=== PATIENT | male | born 2000 | race American Indian/Alaskan Native ===

== ENCOUNTER 2021-04-03 19:11 | Emergency (ER) | payer SELFPAY ==
[2021-04-03 19:24] VITALS: BP 145/86
[2021-04-03] MEDS ORDERED: LIDOCAINE-MPF (1%) 10 MG/1 ML VIAL 5 ML INFILTRATI ONE (22:03)
--- NOTE | 2021-04-03 22:06 | Emergency Department Report ---
HPI - General Chief Complaint: Urogenital-Male Time Seen by Provider: 04/03/21 22:02 - HPI HPI: 20-year-old -[place] male presents to the emergency department with complaint of a 1 to 2-day history of some mild penile discharge and some burning with urination. He says that he recently became sexually active with a new partner and does not always use protection. He denies any past medical history including any history of STDs. He has not taken anything for symptoms prior to presentation today. He denies any rash or lesions. ED Past Medical Hx - Past Medical History Previous Medical History?: No Hx Asthma: Yes - Surgical History Past Surgical History?: No - Medications Home Medications: Home Medications Medication Instructions Recorded Confirmed Last Taken Type DOXYCYCLINE Hyclate [Vibramycin] 100 mg PO Q12HR #14 capsule 04/03/21 Unknown Rx ED Review of Systems ROS: Stated complaint: DISCHARGE FROM PENIS Other details as noted in HPI Comment: All other systems reviewed and negative Constitutional: denies: chills, fever Gastrointestinal: denies: abdominal pain, vomiting Genitourinary: dysuria, discharge. denies: hematuria, testicular pain Skin: denies: rash, lesions Physical Exam - Physical Exam Vital Signs: Vital Signs 04/03/21 19:14 Temperature 98.2 F Pulse Rate 100 H Respiratory 16 Rate Blood Pressure 145/86 O2 Sat by Pulse 98 Oximetry Physical Exam: GENERAL: The patient is well-developed well-nourished. HENT: Normocephalic. Atraumatic. Patient has moist mucous membranes. EYES: Extraocular motions are intact. NECK: Supple. Trachea is midline. ABDOMEN: There is no abdominal distention. SKIN: Skin is warm and dry. NEURO: The patient is awake, alert, and oriented. The patient is cooperative. Normal speech. MUSCULOSKELETAL: There is no tenderness or deformity. There is no limitation range of motion. : No scrotal or penile lesions seen. No current penile discharge. ED Course Vital Signs 04/03/21 19:14 Temperature 98.2 F Pulse Rate 100 H Respiratory 16 Rate Blood Pressure 145/86 O2 Sat by Pulse 98 Oximetry ED Medical Decision Making - Medical Decision Making This patient presents to the emergency department with a complaint of some dysuria, penile discharge, and recent unprotected sexual activity. This appears consistent with urethritis. The patient has been treated empirically with Rocephin and a prescription for doxycycline. We discussed safe sex practices. He will not engage in any type of sexual activity for at least 1 week after finishing the antibiotics. He has been given an outpatient referral for the local health department. Critical Care Time: No Critical care attestation.: If time is entered above; I have spent that time in minutes in the direct care of this critically ill patient, excluding procedure time. ED Disposition Clinical Impression: Urethritis Disposition: HOME / SELF CARE / HOMELESS Is pt being admited?: No Condition: Stable Instructions: Urethritis, Adult Additional Instructions: Take all of the medications as prescribed. Please avoid any sexual activity/intercourse for at least 1 week after finishing the antibiotics. Return to the emergency department with any worsening of your symptoms, new or concerning symptoms not addressed during this current emergency department visit, or with any acute distress. Prescriptions: DOXYCYCLINE Hyclate [Vibramycin] 100 mg PO Q12HR #14 capsule Referrals: PRIMARY CARE, [Primary Care Provider] - 3-5 Days [facility] [Outside] - 3-5 Days Forms: STI Treatment and Prevention Time of Disposition: 22:06
== END 2021-04-03 22:57 | disposition home or self-care (01) ==
LOC: ED 19:11
DX: N34.2 Other urethritis (principal); J45.909 Unspecified asthma, uncomplicated
CPT/HCPCS: 96372; 99282; J0696; J3490